=== PATIENT | male | born 2000 | race Caucasian/White ===

== ENCOUNTER 2020-02-29 10:18 | Emergency (ER) | payer SELFPAY ==
[~2020-02-29] VITALS: Ht 193 cm; Wt 127.0 kg
[2020-02-29 10:28] VITALS: BP_SYST 154
[2020-02-29 11:10] VITALS: BP_SYST 154
== END 2020-02-29 11:10 | disposition home or self-care (01) ==
LOC: SED 10:18
DX: M54.6 Pain in thoracic spine (principal); V49.50XA Passenger injured in collision with unspecified motor vehicles in traffic accident, initial encounter; Y93.89 Activity, other specified; Y92.89 Other specified places as the place of occurrence of the external cause; Y99.8 Other external cause status
CPT/HCPCS: 99283

== ENCOUNTER 2020-12-07 21:02 | Inpatient (IN) | payer MEDICAID, SELFPAY ==
[~2020-12-07] VITALS: Ht 195.6 cm; Wt 138.8 kg
[2020-12-07 21:10] VITALS: BP_SYST 155
--- NOTE | 2020-12-07 21:15 | NUR ---
Patient to ER bed 05 to gown for evaluation. Side rails up.
--- NOTE | 2020-12-07 21:15 | NUR ---
Received patient to ER w/ c/o excessive thirst, urination, and blurred vision ongoing x2 weeks. patient denies any h/o DM but has family h/o DM. Introduced self to patient, positioned for comfort. Bed to low position sr up, continue to monitor. Patient resting quietly. No acute distress noted. Vital signs within normal range.
[2020-12-07] MEDS ORDERED: NACL 0.9% 1,000 ML IV ONE ×3 (21:30→22:15)
--- NOTE | 2020-12-07 21:30 | NUR ---
# 18 gauge angiocath placed to RAC. Use of asceptic technique. Opsite placed over site. Blood return noted. Blood for lab drawn from site. Flushed with 10 cc of normal saline. No evidence of infiltration noted. Patient tolerated well.
--- NOTE | 2020-12-07 21:31 | NUR ---
Medicated per MD orders. IVF infusing with no s/s of infiltration at this time. Will cont to monitor and observe for any adverse reaction
[2020-12-07 21:49] LABS: BASOPHILS # (AUTO) 0.1 K/uL (0.0-0.2); EOSINOPHILS # (AUTO) 0.1 K/uL (0.0-0.4); EOSINOPHILS % (AUTO) 1.1 % (0.0-4.0); HEMATOCRIT 46.5 % (36-54); HEMOGLOBIN 15.9 g/dL (14.0-18.0); LYMPHOCYTES # (AUTO) 3.1 K/uL (1.0-5.5); LYMPHOCYTES % (AUTO) 33.6 % (20.5-51.5); MEAN CORPUSCULAR HEMOGLOBIN 31 pg (27-31); MEAN CORPUSCULAR HGB CONC 34 % (32-36); MEAN CORPUSCULAR VOLUME 90 fL (79.0-98.0); MONOCYTES # (AUTO) 0.8 K/uL (0.0-1.0); MONOCYTES % (AUTO) 8.9 % (1.7-9.3); NEUTROPHILS # (AUTO) 5.1 K/uL (1.8-7.7); NEUTROPHILS % (AUTO) 55.4 % (40.0-70.0); PLATELET COUNT (AUTO) 240 K/uL (130-430); RED BLOOD CELL COUNT(AUTO) 5.17 MIL/uL (4.2-6.2); WHITE BLOOD COUNT (AUTO) 9.2 K/uL (4.8-10.8)
[2020-12-07 21:57] LABS: CALCIUM 8.4 mg/dL (8.4-11.0); CREATININE 1.37 mg/dL (0.55-1.30); POTASSIUM 4.2 mmol/L (3.5-5.1)
[2020-12-07 22:02] LABS: ALBUMIN 3.9 g/dL (3.4-4.8)
[2020-12-07] MEDS ORDERED: INSULIN REGULAR, HUMAN 10 UNITS/0.1 ML INJ IVP ONE (22:15)
--- NOTE | 2020-12-07 22:15 | NUR ---
Medicated w/ 10 units regular insulin per MD orders. IVF infusing 2nd liter with no s/s of infiltration at this time. Will cont to monitor and observe for any adverse reaction. Continue to monitor. Patient resting quietly. No acute distress noted. Vital signs within normal range.
[2020-12-07 22:40] LABS: BILIRUBIN,URINE NEGATIVE (NEGATIVE); CLARITY/URINE CLEAR (CLEAR); COLOR,URINE YELLOW (YELLOW); GLUCOSE,URINE 3+ (NEGATIVE); KETONES,URINE 3+ (NEGATIVE); LEUKOCYTE ESTERASE ,URINE NEGATIVE (NEGATIVE); NITRITE, URINE NEGATIVE (NEGATIVE); PROTEIN URINE NEGATIVE (NEGATIVE); UROBILINOGEN,URINE 0.2 (0.2-1.0)
[2020-12-07 22:42] LABS: BLOOD, URINE TRACE (NEGATIVE)
[2020-12-07 22:44] LABS: BACTERIA,URINE FEW /HPF (None Seen); WBC,URINE 0-3 /HPF (0-3)
--- NOTE | 2020-12-07 23:02 | NUR ---
Medicated per MD orders w/ 3rd liter of IVF to run at 500 ml/hr. IVF infusing with no s/s of infiltration at this time. Will cont to monitor and observe for any adverse reaction.
[2020-12-07] MEDS ORDERED: INSULIN REGULAR, HUMAN 100 UNITS in NS 99 ML IV PRN ×4 (23:30→23:45)
[2020-12-07] MEDS ORDERED: DEXTROSE 50% JECT 50 ML DISP.SYRIN IVP PRN (23:30)
[2020-12-07 23:46] LABS: PHOSPHORUS 1.4 mg/dL (2.7-4.5)
[2020-12-08] VITALS (24 sets, daily range): BP systolic 115–176
[2020-12-08 00:19] LABS: ACETONE, SERUM LARGE (NEGATIVE)
--- NOTE | 2020-12-08 00:49 | NUR ---
# 20 gauge angiocath placed to RAC. Use of asceptic technique. Opsite placed over site. Blood return noted. Flushed with 10 cc of normal saline. No evidence of infiltration noted. Patient tolerated well. Patient given written and verbal discharge instructions and verbalizes understanding. ER MD discussed with patient the results and treatment provided. Patient in stable condition. ID arm band removed. IV catheter removed intact and dressing applied, no active bleeding. Rx of Cefuroxime given. Patient educated on pain management and to follow up with PMD. Pain Scale 0. Report given to Serge at bedside. Opportunity for questions provided and answered. Medication side effect fact sheet provided.
--- NOTE | 2020-12-08 00:52 | NUR ---
Pt arrives from ER via stretcher and placed to ICU bed 01. Pt placed to night monitor, oriented to room and call doll. Pt AAOx3, even and non-labored respirations, denies c/o pain or discomfort. PIV 18 GA RAC and 20 GA LAC. No skin issues observed or reported. VSS, NAD.
[2020-12-08] MEDS: NACL 0.9% 1,000 ML IV SCH ×7 (01:25→21:11)
[2020-12-08] MEDS ORDERED: INSULIN NPH 100 UNITS/ML 10 ML VIAL SUBCUT ONE ×2 (01:30→17:30)
--- NOTE | 2020-12-08 01:30 | NUR ---
Paged Dr. Ramirez to clarify admit orders. Informed Dr. Ramirez that pt's bg is 278 and insulin drip has not been started. New orders received from Dr. Ramirez to not start insulin, give 20 Units NPH insulin now, then give 15 Units NPH insulin before breakfast and dinner, fsbs q 4 hours with s.s. Humulin R insulin protocol. Orders read back and confirmed per Dr. Ramirez. Orders entered and carried out.
--- NOTE | 2020-12-08 03:00 | NUR ---
Pt resting quietly, easily awakened, denies c/o pain or discomfort, no needs verbalized. VSS, NAD.
[2020-12-08] MEDS: INSULIN REGULAR, HUMAN 100 UNITS/ML, 10 ML VIAL (humuLIN R) SUBCUT PRN ×5 (05:30→21:13)
[2020-12-08 06:59] LABS: CALCIUM 7.6 mg/dL (8.4-11.0); CREATININE 1.12 mg/dL (0.55-1.30); PHOSPHORUS 1.8 mg/dL (2.7-4.5)
[2020-12-08] MEDS ORDERED: INSULIN NPH 100 UNITS/ML 10 ML VIAL SUBCUT SCH ×4 (07:00→17:00)
--- NOTE | 2020-12-08 07:10 | NUR ---
Dr. Ramirez at bedside. Updated on pt status, no new orders received.
--- NOTE | 2020-12-08 07:15 | NUR ---
OPENING NOTES: RECEIVED BEDSIDE REPORT FROM ENDORSING RN ,PATIENT LYING IN WITH WITH AN IVF OF NORMAL SALINE AT 300 ML/HR.PATIENT IS ALERT, ORIENTED X4, NO SIGNS OF ACUTE DISTRESS NOTED AT THIS TIME. BED LOCKED AT LOWEST POSITION. FALL AND SAFETY PRECAUTION IN PLACE.
--- NOTE | 2020-12-08 07:20 | NUR ---
Pt report given to oncoming RN. Pt AAOx3, able to make needs known, denies c/o pain or discomfort, no focal neuro-sensory deficits observed or reported this shift. NS at 300 mL/hr continues to infuse to patent and secure PIV LAC. Pt uses urinal and total U/O this shift 1000 mL. VSS, NAD.
[2020-12-08 14:58] LABS: PHOSPHORUS 1.6 mg/dL (2.7-4.5)
[2020-12-08 15:14] LABS: ACETONE, SERUM MODERATE (NEGATIVE)
--- NOTE | 2020-12-08 15:31 | NUR ---
Dietitian Recommendations * Recommend [facility], 100 gm protein diet * RD provided bedside diabetic education LP, LU Please refer to Nutrition Assessment for details. Addendum: 12/08/20 at [address] Amended: Links added.
--- NOTE | 2020-12-08 17:23 | NUR ---
RN notes; patient is for transfer to telemetry.
[2020-12-08] MEDS ORDERED: NAPH,MB-DB/K PH,MBDB 250 MG TAB PO ONE (17:30)
--- NOTE | 2020-12-08 19:25 | NUR ---
closing notes: endorsed patient to xray tech RN for continuation of care.
--- NOTE | 2020-12-08 20:00 | NUR ---
AAOX4. IN NO APPARENT DISTRESS. DENIES PAIN. ON ROOM AIR. MOTHER IN VISITING. QUESTIONS ANSWERED. OPPORTUNITY TO EDUCATE MOTHER ON DKA.
--- NOTE | 2020-12-08 21:00 | NUR ---
ACCU-CHEK 193, 2 UNITS REGULAR INSULIN SQ GIVEN PER SLIDING SCALE COV.
[2020-12-08] MEDS: NAPH,MB-DB/K PH,MBDB 250 MG TAB PO SCH (21:11)
--- NOTE | 2020-12-08 21:30 | NUR ---
SNACKS GIVEN PER PT REQUEST. AMBULATES AT TIMES.
--- NOTE | 2020-12-08 22:00 | NUR ---
ATE WELL. VOIDED 825CC CLEAR MARCELO URINE VIA URINAL.
[2020-12-09] VITALS (11 sets, daily range): BP systolic 116–157
--- NOTE | 2020-12-09 01:00 | NUR ---
RESTING QUIETLY. ACCU-CHEK 237, 4 UNITS REGULAR INSULIN SQ GIVEN PER SLIDING SCALE COV. VOIDED 950CC CLEAR MARCELO URINE VIA URINAL.
[2020-12-09] MEDS: INSULIN REGULAR, HUMAN 100 UNITS/ML, 10 ML VIAL (humuLIN R) SUBCUT PRN ×6 (01:02→21:33)
--- NOTE | 2020-12-09 04:00 | NUR ---
DOZES ON AND OFF. NO DISTRESS, SOB, PAIN NOTED.
[2020-12-09] MEDS: NACL 0.9% 1,000 ML IV SCH ×4 (04:42→16:24)
--- NOTE | 2020-12-09 05:50 | NUR ---
TRANSFERRED PT VIA WHEELCHAIR TO 129-A IN SATISFACTORY CONDITION WITH ALL BELONGINGS. REPORT GIVEN TO LOVE MILLER AT BEDSIDE.
--- NOTE | 2020-12-09 06:00 | NUR ---
RECEIVED PT TRANSFER FROM ICU PT IS ALERT AND ORIENTED X4 ON ROOM AIR W/NO S/S OF RESPIRATORY DISTRESS OR DISCOMFORT. HE DOES NOT HAVE ANY COMPLAINTS AT THIS TIME. ENSURED ALL SAFETY PRECAUTIONS. BED IS LOCKED AND IN THE LOWEST POSITION, CALL LIGHT WITHIN REACH.
[2020-12-09] MEDS: INSULIN NPH 100 UNITS/ML 10 ML VIAL SUBCUT SCH ×2 (06:23→17:11)
--- NOTE | 2020-12-09 06:44 | NUR ---
CLOSING NOTES: Patient is resting in bed, alert and oriented with no s/s of distress or discomfort. He is on room air, tolerating well. He has IV 20 g on LAC with NS @200, infusing well and RAC 18g SL. Skin is intact. Patient belongings were reviewed and entered after transfer from ICU. He does not have any complaints at this time. Ensured all safety precautions. Bed is locked and in the lowest position, call light within reach. Will endorse to dayshift nurse.
[2020-12-09 07:17] LABS: CALCIUM 7.9 mg/dL (8.4-11.0); CREATININE 0.86 mg/dL (0.55-1.30); PHOSPHORUS 1.9 mg/dL (2.7-4.5); POTASSIUM 3.1 mmol/L (3.5-5.1)
[2020-12-09] MEDS: NAPH,MB-DB/K PH,MBDB 250 MG TAB PO SCH ×4 (08:11→21:25)
[2020-12-09 09:01] LABS: BASOPHILS # (AUTO) 0.1 K/uL (0.0-0.2); BASOPHILS % (AUTO) 1.1 % (0.0-2.0); EOSINOPHILS # (AUTO) 0.1 K/uL (0.0-0.4); EOSINOPHILS % (AUTO) 1.8 % (0.0-4.0); HEMATOCRIT 41.8 % (36-54); HEMOGLOBIN 14.3 g/dL (14.0-18.0); LYMPHOCYTES # (AUTO) 3.4 K/uL (1.0-5.5); LYMPHOCYTES % (AUTO) 44.5 % (20.5-51.5); MEAN CORPUSCULAR HEMOGLOBIN 31 pg (27-31); MEAN CORPUSCULAR HGB CONC 34 % (32-36); MEAN CORPUSCULAR VOLUME 89 fL (79.0-98.0); MONOCYTES # (AUTO) 0.6 K/uL (0.0-1.0); MONOCYTES % (AUTO) 7.3 % (1.7-9.3); NEUTROPHILS # (AUTO) 3.5 K/uL (1.8-7.7); NEUTROPHILS % (AUTO) 45.3 % (40.0-70.0); PLATELET COUNT (AUTO) 184 K/uL (130-430); RED BLOOD CELL COUNT(AUTO) 4.68 MIL/uL (4.2-6.2); RED CELL DISTRIBUTION WIDTH 14.1 % (9.0-15.0); WHITE BLOOD COUNT (AUTO) 7.7 K/uL (4.8-10.8)
--- NOTE | 2020-12-09 09:25 | NUR ---
Education Discussed to patient diet management for Diabetes ,checking of blood sugar and insulin administration, indication , side effect, peak of action verbalized understanding.
--- NOTE | 2020-12-09 14:17 | NUR ---
Paged Dr. PERDUE for lab result
--- NOTE | 2020-12-09 14:27 | NUR ---
HIGH ALERT NOTE: Called Dr. PERDUE back at [phone] identified within the medical roster to verify physician authenticity.for order of KDUR 40 meq x 1 po
[2020-12-09] MEDS ORDERED: POTASSIUM CHLORIDE 20 MEQ TAB.PRT.SR PO ONE (14:30)
[2020-12-09] MEDS ORDERED: NAPH,MB-DB/K PH,MBDB 250 MG TAB PO ONE (16:00)
[2020-12-09] MEDS ORDERED: CHOLECALCIFEROL (VITAMIN D3) 5,000 UNIT TABLET PO ONE (16:00)
[2020-12-09 16:47] LABS: ANION GAP 17 (5-15); CALCIUM 8.1 mg/dL (8.4-11.0); CHLORIDE 105 mmol/L (98-107); CREATININE 1.11 mg/dL (0.55-1.30); GLUCOSE 234 mg/dL (70-99); POTASSIUM 3.4 mmol/L (3.5-5.1); SODIUM SERUM 139 mmol/L (136-145); UREA NITROGEN, BLOOD 5 mg/dL (8-21)
[2020-12-09 16:48] LABS: GFR AFRICAN AMERICAN 108 mL/min (>90)
[2020-12-09 16:49] LABS: ACETONE, SERUM MODERATE (NEGATIVE)
[2020-12-09] MEDS: LR 1,000 ML IV SCH ×2 (17:16→21:32)
--- NOTE | 2020-12-09 19:30 | NUR ---
OPENING NOTES RECEIVED REPORT FROM DAY SHIFT RN. PT RESTING IN BED, ALERT & ORIENTED X4. BREATHING EVEN AND UNLABORED TO ROOM AIR. CHEST RISE AND FALL SYMMETRICAL. IVF RUNNING ORDERED RATE. NO SIGNS OF INFILTRATION NOTED. PT TOLERATING WELL. PT DENIES ANY PAIN AT THIS TIME. BED LOCKED IN LOWEST POSITION. CALL LIGHT WITHIN REACH. SIDE RAILS UP X3. SAFETY PRECAUTIONS ARE IN PLACE. WILL CONTINUE TO MONITOR.
[2020-12-10] VITALS: BP_SYST 119
[2020-12-10] MEDS: LR 1,000 ML IV SCH ×4 (05:42→20:09)
[2020-12-10] MEDS: INSULIN NPH 100 UNITS/ML 10 ML VIAL SUBCUT SCH ×2 (06:12→17:32)
[2020-12-10] MEDS: INSULIN REGULAR, HUMAN 100 UNITS/ML, 10 ML VIAL (humuLIN R) SUBCUT PRN ×4 (06:13→20:20)
[2020-12-10 06:54] LABS: BASOPHILS # (AUTO) 0.1 K/uL (0.0-0.2); BASOPHILS % (AUTO) 0.8 % (0.0-2.0); EOSINOPHILS # (AUTO) 0.1 K/uL (0.0-0.4); HEMATOCRIT 40.9 % (36-54); HEMOGLOBIN 14.2 g/dL (14.0-18.0); LYMPHOCYTES # (AUTO) 2.8 K/uL (1.0-5.5); MEAN CORPUSCULAR HEMOGLOBIN 31 pg (27-31); MEAN CORPUSCULAR HGB CONC 35 % (32-36); MEAN CORPUSCULAR VOLUME 89 fL (79.0-98.0); MONOCYTES # (AUTO) 0.6 K/uL (0.0-1.0); MONOCYTES % (AUTO) 8.6 % (1.7-9.3); NEUTROPHILS # (AUTO) 3.4 K/uL (1.8-7.7); NEUTROPHILS % (AUTO) 48.6 % (40.0-70.0); PLATELET COUNT (AUTO) 194 K/uL (130-430); RED BLOOD CELL COUNT(AUTO) 4.62 MIL/uL (4.2-6.2); RED CELL DISTRIBUTION WIDTH 14.2 % (9.0-15.0); WHITE BLOOD COUNT (AUTO) 6.9 K/uL (4.8-10.8)
[2020-12-10 07:30] LABS: CALCIUM 8.3 mg/dL (8.4-11.0); CREATININE 0.82 mg/dL (0.55-1.30); PHOSPHORUS 2.8 mg/dL (2.7-4.5)
--- NOTE | 2020-12-10 07:40 | NUR ---
AM ROUNDS: PATIENT AWAKE DURING ROUNDS. INSTRUCTED PATIENT TO HOLD BREAKFAST ,FOR ABDOMINAL ULTRASOUND TODAY. PATIENT UNDERSTANDS INSTRUCTIONS GIVEN. IV FLUIDS RUNNING AT LEFT AC INTACT. NO ACUTE DISTRESS.
[2020-12-10 07:55] LABS: POTASSIUM 2.8 mmol/L (3.5-5.1)
[2020-12-10 08:13] VITALS: BP_SYST 126
[2020-12-10] MEDS: NAPH,MB-DB/K PH,MBDB 250 MG TAB PO SCH ×4 (08:30→20:09)
[2020-12-10] MEDS ORDERED: POTASSIUM CHLORIDE 20 MEQ TAB.PRT.SR PO ONE (10:15)
--- NOTE | 2020-12-10 11:32 | NUR ---
CONSULTATION PAGED/CALLED Reason for Consultation: [] Abnormal LFT Person Who was Notified: [] Herber Consulting Physician: [] Dr Castañeda Deputy Chief Magistrate Specialty: [] GI Ordering Physician: [] Dr Ramirez
[2020-12-10 12:15] VITALS: BP_SYST 130
[2020-12-10] MEDS: CHOLECALCIFEROL (VITAMIN D3) 2,000 UNIT TABLET PO SCH (14:42)
[2020-12-10 16:00] VITALS: BP_SYST 127
--- NOTE | 2020-12-10 17:00 | NUR ---
TEACHINGS ON BLOOD SUGAR CHECK/INSULIN ADMINISTRATION: SHOWED PATIENT HOW TO DO BLOOD SUGAR CHECK AND INSULIN ADMINISTRATION. PATIENT VERBALIZED UNDERSTANDING OF TEACHINGS.
[2020-12-10] MEDS: POTASSIUM CHLORIDE 20 MEQ TAB.PRT.SR PO SCH ×2 (17:20→20:09)
--- NOTE | 2020-12-10 18:52 | NUR ---
END OF SHIFT: PATIENT ATE DINNER WELL. TOOK HIS K-DUR 40MEQ X 2DOSES TID. CALL LIGHT WITH IN REACH. BED LOCKED AT LOWEST POSITION. NOT IN ANY DISTRESS.
[2020-12-10 20:00] VITALS: BP_SYST 148
--- NOTE | 2020-12-10 22:00 | NUR ---
ROUNDING NOTES Patient resting in bed - no s/s pain or distress noted. respirations even and unlabored head of bed elevated. skin warm and dry - no s/s hypoglycemia. Bed locked and in lowest position. Call light within reach.
[2020-12-11] VITALS: BP_SYST 136
[2020-12-11] MEDS: LR 1,000 ML IV SCH ×3 (01:32→08:28)
[2020-12-11] MEDS: INSULIN NPH 100 UNITS/ML 10 ML VIAL SUBCUT SCH ×2 (06:05→17:25)
[2020-12-11] MEDS: INSULIN REGULAR, HUMAN 100 UNITS/ML, 10 ML VIAL (humuLIN R) SUBCUT PRN ×4 (06:09→20:29)
[2020-12-11 06:17] LABS: BASOPHILS # (AUTO) 0.1 K/uL (0.0-0.2); BASOPHILS % (AUTO) 0.9 % (0.0-2.0); EOSINOPHILS # (AUTO) 0.2 K/uL (0.0-0.4); EOSINOPHILS % (AUTO) 2.4 % (0.0-4.0); HEMATOCRIT 39.8 % (36-54); HEMOGLOBIN 13.8 g/dL (14.0-18.0); LYMPHOCYTES # (AUTO) 3.4 K/uL (1.0-5.5); LYMPHOCYTES % (AUTO) 46.4 % (20.5-51.5); MEAN CORPUSCULAR HEMOGLOBIN 31 pg (27-31); MEAN CORPUSCULAR HGB CONC 35 % (32-36); MEAN CORPUSCULAR VOLUME 88 fL (79.0-98.0); MONOCYTES # (AUTO) 0.7 K/uL (0.0-1.0); MONOCYTES % (AUTO) 9.3 % (1.7-9.3); PLATELET COUNT (AUTO) 200 K/uL (130-430); RED BLOOD CELL COUNT(AUTO) 4.52 MIL/uL (4.2-6.2); RED CELL DISTRIBUTION WIDTH 14.4 % (9.0-15.0); WHITE BLOOD COUNT (AUTO) 7.3 K/uL (4.8-10.8)
[2020-12-11 06:29] LABS: ANION GAP 15 (5-15); CALCIUM 8.2 mg/dL (8.4-11.0); CHLORIDE 108 mmol/L (98-107); CREATININE 0.77 mg/dL (0.55-1.30); GLUCOSE 192 mg/dL (70-99); PHOSPHORUS 3.1 mg/dL (2.7-4.5); SODIUM SERUM 146 mmol/L (136-145); UREA NITROGEN, BLOOD 5 mg/dL (8-21)
[2020-12-11 07:48] LABS: GFR AFRICAN AMERICAN 164 mL/min (>90); POTASSIUM 2.9 mmol/L (3.5-5.1)
[2020-12-11 08:00] VITALS: BP_SYST 137
--- NOTE | 2020-12-11 08:00 | NUR ---
OPENING NOTES: PATIENT EATING BREAKFAST. NO SIGNS OF ACUTE DISTRESS NOTED. FALL AND SAFETY PRECAUTION REINFORCED. CALL LIGHT WITHIN REACH.
--- NOTE | 2020-12-11 08:06 | NUR ---
PAGED PAGED QUINN TSAI AT [phone] SPOKE WITH MIRIAM.
[2020-12-11] MEDS: POTASSIUM CHLORIDE 20 MEQ TAB.PRT.SR PO SCH ×4 (08:27→20:15)
[2020-12-11] MEDS: NAPH,MB-DB/K PH,MBDB 250 MG TAB PO SCH ×4 (08:27→20:15)
[2020-12-11] MEDS: CHOLECALCIFEROL (VITAMIN D3) 2,000 UNIT TABLET PO SCH (08:27)
[2020-12-11 08:31] LABS: ACETONE, SERUM SMALL (NEGATIVE)
--- NOTE | 2020-12-11 09:52 | NUR ---
Patient accepted by [facility] [phone] for disease management. discharge disposition 06
--- NOTE | 2020-12-11 10:43 | NUR ---
Nutrition F/U Admitting Diagnosis: DKA Medical History Comment: PMH: none Pt also found w/ new onset DM and obesity per physician notes SARS-CoV-2 Ag (Rapid) Negative 12/07 Subjective Information: Pt seen resting in bed at time of RD visit. He denied any food issues, reports that he has been tolerating meals. Pt also reports his last BM was yesterday (12/10). No constipation or any abdominal discomfort. Pt w/ improved symptoms and BGs. Diet education has been provided during last RD visit (12/08). Pt is pending GI consult for abnormal LFTs. Per EMR review, Leo scale: 22. No skin issues/edema documented. Abdomen is soft and nondistended w/ active bowel sounds. RD noted elevated Na+, rec to 2gm Na diet. Current Diet Order/Nutrition Support: [facility] diet Pertinent Medications: SSI, NaCl IV, K-dur, VIT D Pertinent Labs: 12/11 Na 146H, K 2.9L, BG 192H, POC BG 193H, BUN 5L, Cre 0.77WNL, 12/08: HgbA1c 10.8H, AST 129H, ALT 223H Height: 6 feet 5.00 inches Weight: 306 pounds/ 138.036083 kilograms (12/08) --stable. Body Mass Index: 36.28 kg/m2 [place]/Adjusted Body Weight: 208#/95 kg. Adj IBW (obesity): 233#/106 kg. 147% Recent Weight Change: Yes - 36# wt gain since last year d/t pandemic per pt report Estimated Energy Expenditure (kcals/day) 2221-5522 kcal/day (25-30 kcal/kg IBW d/t obesity status) Estimated Protein Required (g/day) 95-114 gm/day (0.8-1 gm/kg IBW d/t obesity status) Estimated Fluid Required (l/day) 2.4-2.9 L/day (1 ml/kcal/day for maintenance) Problem/Etiology/Signs/Symptoms Altered nutrition-related labs related to endocrine dysfunction as evidenced by recent Dx of DM and elevated BG lab values. (*ongoing) Expected Outcomes/Goals - Monitor appetite and PO intakes w/ goal of pt meeting at least 80% of estimated nutritional needs, labs trending WNL, normal GI function, and skin integrity/wt maintenance Dietitian Recommendations * Recommend: add 2gm Na diet. * Recommend: continue CCHO, 100 gm protein diet Follow Up High Risk: F/U in 2-3days
--- NOTE | 2020-12-11 10:50 | NUR ---
Dietitian Recommendations * Recommend: add 2gm Na diet. * Recommend: continue CCHO, 100 gm protein diet Please see Nutrition F/U note for details LU PAIGE
[2020-12-11 11:59] LABS: ALBUMIN 2.9 g/dL (3.4-4.8); BILIRUBIN,DIRECT 0.3 mg/dL (0.0-0.3); TOTAL BILIRUBIN 0.8 mg/dL (0.0-1.0)
[2020-12-11 12:44] LABS: TOTAL IRON BIND. CAPACITY 233 ug/dL (250-450)
[2020-12-11 12:52] VITALS: BP_SYST 123
[2020-12-11 13:06] LABS: HEPATITIS A AB, IgM Negative (Negative); HEPATITIS B CORE AB, IgM Negative (Negative); HEPATITIS B SURFACE AG Negative (Negative)
[2020-12-11 15:21] VITALS: BP_SYST 130
--- NOTE | 2020-12-11 19:18 | NUR ---
CLOSING NOTES: PATIENT EATING DINNER. NO SIGNS OF ACUTE DISTRESS NOTED. FALL AND SAFETY PRECAUTION REINFORCED. CALL LIGHT WITHIN REACH.
[2020-12-11 20:00] VITALS: BP_SYST 122
--- NOTE | 2020-12-11 22:00 | NUR ---
ROUNDING NOTES Patient resting in bed - no s/s pain or distress noted. Respirations even and unlabored - head of bed elevated. IV site patent - no s/s redness, infection, or infiltration. Bed locked and in lowest position. Call light within reach.
[2020-12-12] VITALS: BP_SYST 127
[2020-12-12] MEDS: INSULIN NPH 100 UNITS/ML 10 ML VIAL SUBCUT SCH ×2 (06:09→17:11)
[2020-12-12] MEDS: INSULIN REGULAR, HUMAN 100 UNITS/ML, 10 ML VIAL (humuLIN R) SUBCUT PRN ×3 (06:09→17:10)
--- NOTE | 2020-12-12 06:46 | NUR ---
CLOSING NOTES Patient resting in bed - no s/s pain or distress noted. Respirations even and unlabored - head of bed elevated. IV site patent - no s/s redness, infection, or infiltration. Bed locked and in lowest position. No s/s hypoglycemia - skin warm and dry. Call light within reach.
[2020-12-12 07:02] LABS: BASOPHILS # (AUTO) 0.1 K/uL (0.0-0.2); BASOPHILS % (AUTO) 0.9 % (0.0-2.0); EOSINOPHILS # (AUTO) 0.1 K/uL (0.0-0.4); EOSINOPHILS % (AUTO) 2.1 % (0.0-4.0); HEMATOCRIT 40.7 % (36-54); HEMOGLOBIN 13.9 g/dL (14.0-18.0); LYMPHOCYTES # (AUTO) 3.1 K/uL (1.0-5.5); LYMPHOCYTES % (AUTO) 44.7 % (20.5-51.5); MEAN CORPUSCULAR HEMOGLOBIN 31 pg (27-31); MEAN CORPUSCULAR HGB CONC 34 % (32-36); MEAN CORPUSCULAR VOLUME 90 fL (79.0-98.0); MONOCYTES # (AUTO) 0.7 K/uL (0.0-1.0); MONOCYTES % (AUTO) 9.4 % (1.7-9.3); NEUTROPHILS % (AUTO) 42.9 % (40.0-70.0); PLATELET COUNT (AUTO) 203 K/uL (130-430); RED BLOOD CELL COUNT(AUTO) 4.55 MIL/uL (4.2-6.2); RED CELL DISTRIBUTION WIDTH 14.7 % (9.0-15.0)
[2020-12-12 07:22] LABS: CALCIUM 8.6 mg/dL (8.4-11.0); CREATININE 0.67 mg/dL (0.55-1.30); PHOSPHORUS 3.6 mg/dL (2.7-4.5); POTASSIUM 3.4 mmol/L (3.5-5.1); TOTAL BILIRUBIN 0.6 mg/dL (0.0-1.0)
[2020-12-12 08:01] VITALS: BP_SYST 157
--- NOTE | 2020-12-12 08:06 | NUR ---
OPENING NOTES PATIENT AAOX 4. RESPIRATION EVEN AND UNLABORED. VITAL SIGNS STABLE. AFEBRILE. NO S/S OF DISTRESS NOR PAIN NOTED. SITTING WHILE EATING. BED LOW POSITION, ALARMED AND LOCKED. CALL LIGHTS WITHIN REACH. WILL CONTINUE TO MONITOR PATIENTS STATUS.
[2020-12-12] MEDS: POTASSIUM CHLORIDE 20 MEQ TAB.PRT.SR PO SCH ×3 (10:10→17:00)
[2020-12-12] MEDS: CHOLECALCIFEROL (VITAMIN D3) 2,000 UNIT TABLET PO SCH (10:10)
[2020-12-12] MEDS: NAPH,MB-DB/K PH,MBDB 250 MG TAB PO SCH ×3 (10:13→17:18)
[2020-12-12 12:00] VITALS: BP_SYST 136
--- NOTE | 2020-12-12 12:08 | NUR ---
LATEST BS 217MG/DL COVERAGE GIVEN. DUE MEDS GIVEN TOO.
[2020-12-12] MEDS ORDERED: INSU100V SQ (14:09)
[2020-12-12] MEDS ORDERED: NPH,100I SQ (14:11)
[2020-12-12 16:01] VITALS: BP_SYST 130
--- NOTE | 2020-12-12 17:20 | NUR ---
LATEST BS IS 259 MG/DL. COVERAGE GIVEN. HUMULIN N GIVEN WITH 30 UNITS. SQ
[2020-12-12 17:21] VITALS: BP_SYST 140
--- NOTE | 2020-12-12 18:30 | NUR ---
MOM CAME AND EXPLAINED THE PROCEDURE AND REGARDING THE [facility] [phone]. AND ALSO THE HOW TO USED INSULIN NEEDLE, GLUCOMETER AND LANCET AND PRESCRIPTION FOR NPH INSULIN, HUMALOG INSULIN WITH COVERAGE. [facility] I D BAND REMOVED. IV ACCESS REMOVED. DISCHARGED INSTRUCTION GIVEN TO THE PATIENT AND TO THE MOM NAMED SHERWIN.
--- NOTE | 2020-12-12 18:40 | NUR ---
PATIENT LEFT IN STABLE CONDITION. REFUSED TO USED A WHEELCHAIR AT THIS TIME. AND FOLLOW UP WITH THE PRIMARY DOCTOR IN ONE WEEK. AND ONE WEEK TO GET SCHEDULE FOR [facility] INSTRUMENT REPAIR TECHNICIAN.
[2020-12-13 08:06] LABS: ANTI NUCLEAR AB WITH REFLEX Negative (Negative)
[2020-12-14 12:07] LABS: CERULOPLASMIN 21.4 mg/dL (16.0-31.0)
--- NOTE | 2020-12-17 08:31 | NUR ---
Disposition 06
== END 2020-12-12 18:40 | disposition home health service (06) | DRG 420 ==
LOC: SED 21:02 → SIC 23:36 → STU 12-09 05:59
PROVIDERS: ADMIT Internal Medicine; ATTEND Internal Medicine
DX: E11.10 Type 2 diabetes mellitus with ketoacidosis without coma (principal); N17.0 Acute kidney failure with tubular necrosis; R65.11 Systemic inflammatory response syndrome (SIRS) of non-infectious origin with acute organ dysfunction; E44.1 Mild protein-calorie malnutrition; R16.1 Splenomegaly, not elsewhere classified; E66.9 Obesity, unspecified; E87.6 Hypokalemia; Z20.822 Contact with and (suspected) exposure to COVID-19; E78.5 Hyperlipidemia, unspecified; E86.0 Dehydration; Z68.36 Body mass index [BMI] 36.0-36.9, adult
CPT/HCPCS: 36415; 76700-TC; 80048; 80053; 80061; 80074; 80076; 81000; 82009; 82390; 82962; 83036; 83540; 83550; 83735; 84100; 85025; 86038; 87081; 93005; 96361; 96374; 99291; G0378; J1815